=== PATIENT | female | born 1990 | race Two or more races ===

== ENCOUNTER → 2018-08-20 | Outpatient (CLI) | payer SELFPAY ==
--- NOTE | 2018-08-20 17:38 | RADIOLOGY REPORT (SQ) ---
EXAM DESCRIPTION: U/S [id number] TRNABD 1GES W/ODOP COMPLETED DATE/TIME: 08/20/2018 3:52 pm REASON FOR STUDY: Z34.91 ENCNTR FOR SUPRVSN OF NORMAL PREG, UNSP, FIRST TRIMESTER Z34.91 ENCNTR FOR SUPRVSN OF NORMAL PREG, UNSP, FIRST TRIMES COMPARISON: No previous this TECHNIQUE: Static and Dynamic grayscale imaging performed of gravid uterus using transabdominal appr oac. Additional selected color Doppler and spectral images recorded. All stored on PACS. LIMITATIONS: None. FINDINGS: FETUSES SEEN:1 EGA: 15 weeks 4 days Calculated using BPD,FL,HC,AC documented on images. Last menstrual period 2018 estimated gestational age 14 weeks 6 days). ALLEN: 02/07/2019 EFW: Not calculated PERCENTILE: Not calculated TEOFILO: Largest pocket 4.5 cm PLACENTA: Posterior GRADE: I PRESENTATION: Cephalic. ANATOMY: HEART RATE: 162 beats per minute. FOUR CHAMBER HEART: Not well seen THREE VESSEL CORD: Yes. CORD INSERTION: Visualized. KIDNEYS AND BLADDER: Not well seen STOMACH: Visualized. Appears normal. SPINE: Normal as visualized. BRAIN AND LATERAL VENTRICLES: Visualized. Appear normal. OTHER: No other significant finding. MATERNAL ADNEXA: Maternal ovaries not visualized. CERVICAL LENGTH: 4.4 cm Closed. OTHER: No other significant finding. IMPRESSION: LIVING INTRAUTERINE . ESTIMATED GESTATIONAL AGE 15 weeks 4 days NO VISUALIZED ANOMALIES. Trimester of : Second trimester - 13 weeks 1 day to 27 weeks 6 days. TECHNICAL DOCUMENTATION: JOB ID: [id number] [employer]- All Rights Reserved Reading location - IP/workstation name: [email or web address]
== END ==
LOC: RAD 14:50
PROVIDERS: ATTEND Midwife
DX: Z34.82 Encounter for supervision of other normal pregnancy, second trimester (principal)
CPT/HCPCS: 76801

== ENCOUNTER → 2018-10-01 | Outpatient (CLI) | payer MEDICAID ==
--- NOTE | 2018-10-01 14:57 | RADIOLOGY REPORT (SQ) ---
EXAM DESCRIPTION: U/S OB 14+ TRNABD 1GES W/O DOP COMPLETED DATE/TIME: 10/01/2018 2:45 pm REASON FOR STUDY: Z34.82 ENCOUNTER FOR SUPRVSN OF NORMAL , SECOND TRIMESTER Z34.82 ENCOUNT ER FOR SUPRVSN OF NORMAL , SECOND TRI COMPARISON: 08/20/2018 TECHNIQUE: Static and Dynamic grayscale imaging performed of gravid uterus using transabdominal appr oach. Additional selected color Doppler and spectral images recorded. All stored on PACS. LIMITATIONS: None. FINDINGS: FETUSES SEEN:1 EGA: 21 weeks 6 days Calculated using BPD,FL,HC,AC documented on images. No discrepancy with clinica l dates. ALLEN: 02/05/2019 EFW: 505 grams PERCENTILE: 11% TEOFILO: 4.4 cm PLACENTA: Posterior PRESENTATION: Breech ANATOMY: HEART RATE: 132 beats per minute. FOUR CHAMBER HEART: Visualized. THREE VESSEL CORD: Yes. CORD INSERTION: Visualized. KIDNEYS AND BLADDER: Visualized. Appear normal. STOMACH: Visualized. Appears normal. SPINE: Normal as visualized. BRAIN AND LATERAL VENTRICLES: Visualized. Appear normal. OTHER: No other significant finding. MATERNAL ADNEXA: Maternal ovaries not visualized. CERVICAL LENGTH: 5.9 cm. The placenta tip approximately 2.4 cm from the cervical os. Closed. OTHER: A 3.1 x 3.8 x 2.6 cm uterine fibroid is suggested. IMPRESSION: LIVING INTRAUTERINE . ESTIMATED GESTATIONAL AGE: 21 weeks 6 days NO VISUALIZED ANOMALIES. PLEASE SEE ABOVE FINDINGS. Trimester of : Second trimester - 13 weeks 1 day to 27 weeks 6 days. TECHNICAL DOCUMENTATION: JOB ID: [id number] [employer]- All Rights Reserved Reading location - IP/workstation name: [email or web address]
== END ==
LOC: RAD 13:41
PROVIDERS: ATTEND Midwife
DX: Z34.82 Encounter for supervision of other normal pregnancy, second trimester (principal)
CPT/HCPCS: 76805

== ENCOUNTER 2019-02-06 07:42 | Outpatient (CLI) | payer MEDICAID ==
[2019-02-06 08:45] LABS: APPEARANCE,URINE CLOUDY; BILIRUBIN,URINE NEGATIVE (NEGATIVE); COLOR,URINE YELLOW; GLUCOSE, URINE NEGATIVE (NEGATIVE); KETONES,URINE NEGATIVE (NEGATIVE); LEUKOCYTE ESTERASE,URINE MODERATE (NEGATIVE); NITRITE,URINE NEGATIVE (NEGATIVE); PROTEIN,URINE NEGATIVE (NEGATIVE); URINE SPECIFIC GRAVITY 1.017; UROBILINOGEN,URINE NEGATIVE mg/dL (<2.0)
[2019-02-06 09:02] LABS: URINE AMPHETAMINES SCREEN NEGATIVE; URINE BARBITURATES SCREEN NEGATIVE; URINE BENZODIAZEPINES SCREEN NEGATIVE; URINE COCAINE SCREEN NEGATIVE; URINE MARIJUANA (THC) SCREEN NEGATIVE; URINE METHADONE SCREEN NEGATIVE; URINE PHENCYCLIDINE SCREEN NEGATIVE
--- NOTE | 2019-02-06 09:09 | Non Stress Test Report ---
Non Stress Test Datetime Report Generated by CPN: 02/06/2019 09:08 DEMOGRAPHIC Test Number: 1 EGA NST: 39.1 INDICATION Indication for Study (NST) Other: Contractions MONITORING Monitor Explained: Monitor Explained; Test Explained; Patient Verbalized Understanding Time on Monitor: 02/06/2019 08:21 Time off Monitor: 02/06/2019 09:01 NST Duration: 40 NST INTERVENTIONS NST Interventions: PO Hydration Physician Notified NST: Dr. Olman BABY A: [id number] BABY A Movement : Present Contraction Frequency : Irregular FHR Baseline : 150 Accelerations : 15X15 Decelerations : None Variability : Moderate 6-25bpm NST Review: Meets Criteria for Reactive NST NST Review and Verified By : Gerhard Orr RN NST Results: Reactive NST REPORT Report Trigger: Send Report
== END 2019-02-06 10:53 | disposition home or self-care (01) ==
LOC: LC 07:42
PROVIDERS: ATTEND Obstetrics & Gynecology
PROC: 4A1HXCZ Monitoring of Products of Conception, Cardiac Rate, External Approach (ICD-10-PCS; principal; 2019-02-06)
DX: O47.1 False labor at or after 37 completed weeks of gestation (principal); Z3A.39 39 weeks gestation of pregnancy
CPT/HCPCS: 80307; 81005

== ENCOUNTER 2019-02-09 05:02 | Inpatient (IN) | payer MEDICAID ==
[2019-02-09] MEDS ORDERED: OXYTOCIN 10 UNIT/ML VIAL ONE (05:24)
[2019-02-09] MEDS ORDERED: OXYTOCIN/NORMAL SALINE 20 UNIT/1,000 ML RTUINJ ONE (05:24)
[2019-02-09] MEDS ORDERED: LIDOCAINE 1% INJ-PF (10 MG/ML) 30 ML SDV ONE (05:24)
[2019-02-09] MEDS ORDERED: RINGERS SOLUTION,LACTATED 1,000 ML IV PRN (05:24)
[2019-02-09] MEDS ORDERED: MISOPROSTOL 0.2 MG TABLET ONE (05:24)
[2019-02-09 05:36] LABS: APPEARANCE,URINE SLIGHTLY-CLOUDY; BILIRUBIN,URINE NEGATIVE (NEGATIVE); COLOR,URINE YELLOW; GLUCOSE, URINE NEGATIVE (NEGATIVE); KETONES,URINE NEGATIVE (NEGATIVE); LEUKOCYTE ESTERASE,URINE TRACE (NEGATIVE); NITRITE,URINE NEGATIVE (NEGATIVE); PROTEIN,URINE NEGATIVE (NEGATIVE); URINE SPECIFIC GRAVITY 1.023; UROBILINOGEN,URINE NEGATIVE mg/dL (<2.0)
[2019-02-09 05:51] LABS: URINE AMPHETAMINES SCREEN NEGATIVE; URINE BARBITURATES SCREEN NEGATIVE; URINE BENZODIAZEPINES SCREEN NEGATIVE; URINE COCAINE SCREEN NEGATIVE; URINE MARIJUANA (THC) SCREEN NEGATIVE; URINE METHADONE SCREEN NEGATIVE; URINE PHENCYCLIDINE SCREEN NEGATIVE
[2019-02-09] MEDS ORDERED: RINGERS SOLUTION,LACTATED 1,000 ML IV ONE (06:00)
[2019-02-09 06:18] LABS: ABSOLUTE LYMPHOCYTES (AUTO) 1.3 10^3/uL (0.5-4.7); ABSOLUTE MONOCYTES (AUTO) 0.4 10^3/uL (0.1-1.4); BASOPHILS % (AUTO) 0.3 % (0-2); EOSINOPHILS % (AUTO) 0.4 % (0-6); HEMOGLOBIN 10.9 g/dL (12.0-15.5); LYMPHOCYTES % (AUTO) 19.8 % (13-45); MEAN CORPUSCULAR HEMOGLOBIN 28.3 pg (27.0-33.4); MEAN CORPUSCULAR HGB CONC 34.2 g/dL (32.0-36.0); MEAN CORPUSCULAR VOLUME 83 fl (80-97); MONOCYTES % (AUTO) 5.9 % (3-13); PLATELET COUNT 132 10^3/uL (150-450); RED BLOOD COUNT 3.86 10^6/uL (3.72-5.28); RED CELL DISTRIBUTION WIDTH 14.8 % (11.5-14.0); SEGMENTED NEUTROPHILS % (AUTO) 73.6 % (42-78); TOTAL CELLS COUNTED % (AUTO) 100 %; WHITE BLOOD COUNT 6.8 10^3/uL (4.0-10.5)
[2019-02-09] MEDS ORDERED: EPHEDRINE SULFATE INJ 50 MG/1 ML AMPULE ONE (07:21)
[2019-02-09] MEDS ORDERED: FENTANYL CITRATE INJ/PF 100 MCG/2 ML AMPUL ONE (07:21)
[2019-02-09] MEDS ORDERED: FENTANYL/BUPIVACAINE/NS/PF 300 MCG/150 ML RTUINJ EPI ONE (07:21)
[2019-02-09] MEDS ORDERED: PHENYLEPHRINE HCL INJ/PF 10 MG/1 ML SDV ONE (07:21)
[2019-02-09] MEDS ORDERED: BUPIVACAINE HCL 0.25 % INJ/PF (2.5 MG/1 ML) 30 ML VIAL ONE (07:22)
--- NOTE | 2019-02-09 07:49 | Admission Physical ---
Datetime Report Generated by CPN: 02/09/2019 07:48 CURRENT ADMISSION Chief Complaint: Uterine Contractions Indication for Induction: Not Applicable Admit Impression : Term, Intrauterine Admit Plan: Admit to Unit; Initiate Labor Protocol ALLERGIES Medication Allergies: No Medication Allergies: No Known Allergies (02/09/2019) Latex: No Latex Allergies Food Allergies: None Environmental Allergies: None OBSTETRICAL HISTORY EDC: 02/12/2019 00:00 : 3 Para: 2 Term: 2 : 0 SAB: 0 IAB: 0 Ectopic: 0 Livin Cesareans: 0 VBACs: 0 Multiple Births: 0 Gestational Diabetes: No Rh Sensitization: No Incompetent Cervix: No LUIS: No Infertility: No ART Treatment: No Uterine Anomaly: Yes IUGR: No Hx Previous C/S: No Macrosomia: No Hx Loss/Stillborn: No PIH: No Hx : No Placenta Previa/Abruption: No Depression/PP Depression: No PTL/PROM: No Post Hemorrhage: No Current Procedures: Ultrasound Obstetrical History Comments: G1- 2013, IOL for no cervical changes - 2014, G3- Current,Fibroid SEE RECORDS Alcohol: No Marijuana : No Cocaine: No Other Illicit Drugs: No Cigarettes: Never Smoker. 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 Heart Disease: No Hosp/Surgery: Yes Autoimmune Disorder: No Anesthetic Complications: No Kidney Disease: No Abnormal Pap Smear: No Neuro/Epilepsy: No Psychiatric Disorders: No Other Medical Diseases: No Hepatitis/Liver Disease: Yes Significant Family History: No Varicosities/Phlebitis: No Trauma/Violence : No Thyroid Dysfunction: No Medical History Comments: Fatty liver, Childbirth INFECTIOUS HISTORY Gonorrhea: No Genital Herpes: No Chlamydia: No Tuberculosis: No Syphilis: No Hepatitis: No HIV/AIDS Exposure: No Rash or Viral Illness: No HPV: No PHYSICAL EXAM General: Normal HEENT: Normal Neurologic: Normal Thyroid: Normal Heart: Normal Lungs: Normal Breast: Deferred Back: Normal Abdomen: Normal Genitourinary Exam: Normal Extremities: Normal DTRs: Normal Pelvic Type: Adequate FETUS A EGA: 39.4 Monitoring: External US PLANS FOR LABOR AND DELIVERY Labor and Delivery: None Pain Management: Natural Feeding Preference: Breast Benefit of Breast Feed Discussed: Yes Circumcision: Yes INFORMED CONSENT Signature: with User ID: [email or web address]
--- NOTE | 2019-02-09 08:33 | Admission Physical ---
Datetime Report Generated by CPN: 02/09/2019 08:33 CURRENT ADMISSION Chief Complaint: Uterine Contractions Indication for Induction: Not Applicable Admit Impression : Term, Intrauterine ; Active Labor; Intact Membranes Admit Impression- Other: pt just got an epidural, is comfortable Admit Plan: Admit to Unit ALLERGIES Medication Allergies: No Medication Allergies: No Known Allergies (02/09/2019) Latex: No Latex Allergies Food Allergies: None Environmental Allergies: None OBSTETRICAL HISTORY EDC: 02/12/2019 00:00 : 3 Para: 2 Term: 2 : 0 SAB: 0 IAB: 0 Ectopic: 0 Livin Cesareans: 0 VBACs: 0 Multiple Births: 0 Gestational Diabetes: No Rh Sensitization: No Incompetent Cervix: No LUIS: No Infertility: No ART Treatment: No Uterine Anomaly: Yes IUGR: No Hx Previous C/S: No Macrosomia: No Hx Loss/Stillborn: No PIH: No Hx : No Placenta Previa/Abruption: No Depression/PP Depression: No PTL/PROM: No Post Hemorrhage: No Current Procedures: Ultrasound Obstetrical History Comments: G1- 2013, IOL for no cervical changes G2- 2014, G3- Current,Fibroid SEE RECORDS Alcohol: No Marijuana : No Cocaine: No Other Illicit Drugs: No Cigarettes: Never Smoker. 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 Heart Disease: No Hosp/Surgery: Yes Autoimmune Disorder: No Anesthetic Complications: No Kidney Disease: No Abnormal Pap Smear: No Neuro/Epilepsy: No Psychiatric Disorders: No Other Medical Diseases: No Hepatitis/Liver Disease: Yes Significant Family History: No Varicosities/Phlebitis: No Trauma/Violence : No Thyroid Dysfunction: No Medical History Comments: Fatty liver, Childbirth INFECTIOUS HISTORY Gonorrhea: No Genital Herpes: No Chlamydia: No Tuberculosis: No Syphilis: No Hepatitis: No HIV/AIDS Exposure: No Rash or Viral Illness: No HPV: No PHYSICAL EXAM General: Normal HEENT: Normal Neurologic: Normal Thyroid: Normal Heart: Normal Lungs: Normal Breast: Normal Back: Normal Abdomen: Normal Genitourinary Exam: Normal Extremities: Normal DTRs: Normal Pelvic Type: Adequate Vital Signs: Reviewed MEMBRANES Membranes: Intact FETUS A EGA: 39.4 Monitoring: External US FHR- Baseline: 150 Variability: Moderate 6-25bpm Accelerations: 15X15 Decelerations: None FHR Comments: mild variables < 10 sec. Admit Comment: Pt admitted this morning in active labor w/ VE 5/100/-2 per RN. at 39.4 wks, GBS negative, O+. Epidural in place. Pt comfortable. VE deferred. Will AROM within the next hour or so. Vtx on [place], EFW 7+12. Position changes encourged. Attending today is Dr Thurman PLANS FOR LABOR AND DELIVERY Labor and Delivery: None Pain Management: Natural Feeding Preference: Breast Benefit of Breast Feed Discussed: Yes Circumcision: Yes INFORMED CONSENT Assignment: Adele Thurman MD Signature: with User ID: [email or web address] : with User ID: [email or web address]
[2019-02-09] MEDS ORDERED: ACETAMINOPHEN WITH CODEINE #3 TABLET PO PRN (11:07)
[2019-02-09] MEDS ORDERED: OXYTOCIN/NORMAL SALINE 20 UNIT/1,000 ML RTUINJ IV PRN (11:07)
[2019-02-09] MEDS ORDERED: MEASLES,MUMPS&RUBELLA VACC/PF 0.5 ML VIAL SUBCUT PRN (11:07)
[2019-02-09] MEDS ORDERED: BENZOCAINE/MENTHOL AEROSOL SPRAY 56 ML TOP PRN (11:07)
[2019-02-09] MEDS ORDERED: DIPH/PERTUSS(ACELL)/TETANUS VAC/PF 0.5 ML SYR (>=10YO) IM PRN (11:07)
[2019-02-09] MEDS ORDERED: ZOLPIDEM TARTRATE 5 MG TABLET PO PRN (11:07)
[2019-02-09] MEDS ORDERED: DIBUCAINE 1% OINTMENT 28 GM TP PRN (11:07)
[2019-02-09] MEDS: IBUPROFEN 800 MG TABLET PO SCH ×3 (11:15→22:06)
[2019-02-09] MEDS ORDERED: IBUPROFEN 800 MG TABLET ONE (13:30)
--- NOTE | 2019-02-09 15:47 | Delivery Summary ---
Del Sum A-C Datetime Report Generated by CPN: 02/09/2019 15:47 DELIVERY PERSONNEL DELIVERY PERSONNEL: [id number] Delivery Doctor:: Jessenia James CNM Anesthesiologist:: Coleen Hassan MD Labor and Delivery Nurse:: vicky canada Nursery Nurse:: Trish Rodriguez RN Blow Torch Burner/SHIELD CLEANER: Poly Arroyo, ST MATERNAL INFORMATION Delivery Anesthesia: Epidural Medications After Delivery: Pitocin Drip 20 Units/1000ml NSS Delivery QBL: 50 Maternal Complications: None Provider Comments: AROM just prior to . Moderate Meconium noted. With good maternal effort, of VMI, OA, then restitution to KRISTEN, easily delivered the anterior shoulder, body cord noted. Baby Boy placed on pts abdoman, with NBN RN at bedside. Cord clamped after one minute. Cord blood obtained. Placenta S/C/I, ff with decreased lochia, IV Pitocin infusing. Apgars 8,8 QBL 50 ml. Mother and baby skin to skin in stable condition, she plans to breastfeed. Attending MD is Dr Thurman LABOR SUMMARY EDC: 02/12/2019 00:00 No. Babies in Womb: 1 Attempted: No LABOR INFORMATION Reason for Induction: Not Applicable Onset of Labor: 02/09/2019 06:00 Complete Dilatation: 02/09/2019 10:41 Group B Beta Strep: Negative Steroids Given: None Reason Steroids Not Administered: Not Applicable MEMBRANES Membranes Rupture Method: Artificial Rupture of Membranes: 02/09/2019 10:50 Length of Rupture (hr): 0.10 Amniotic Fluid Color: Light Meconium Amniotic Fluid Amount: Small STAGES OF LABOR Stage 1 hr: 4 Stage 1 min: 41 Stage 2 hr: 0 Stage 2 min: 15 Stage 3 hr: 0 Stage 3 min: 3 Total Time in Labor hr: 4 Total Time in Labor min: 59 VAGINAL DELIVERY Episiotomy: None Laceration #1: None Laceration Extension #1: N/A Laceration Repair: Not Applicable BABY A INFORMATION Delivery Date/Time: 02/09/2019 10:56 Method of Delivery: Vaginal Born in Route : No : N/A Forceps: N/A Vacuum Extraction: N/A Shoulder Dystocia : No PRESENTATION/POSITION BABY A Presentation: Cephalic Cephalic Presentation: Vertex Breech Presentation: N/A PLACENTA INFORMATION BABY A Placenta Delivery Time : 02/09/2019 10:59 Placenta Method of Delivery: Spontaneous Placenta Status: Delivered SCORES BABY A Heart Rate 1 min: >100 bpm Resp Effort 1 min: Good Cry Reflex Irritability 1 min: Cough or Sneeze or Pulls Away Muscle Tone 1 min: Active Motion Color 1 min: Blue/Pale Resuscitation Effort 1 min: Tactile Stimulation; PPV/NCPAP SCORE 1 MIN: 8 Heart Rate 5 min: >100 bpm Resp Effort 5 min: Good Cry Reflex Irritability 5 min: Cough or Sneeze or Pulls Away Muscle Tone 5 min: Active Motion Color 5 min: Blue/Pale Resuscitation Effort 5 min: Tactile Stimulation SCORE 5 MIN: 8 INFORMATION BABY A Gestational Age at Delivery: 39.4 Gestational Status: Full Term- 39- 40.6 Weeks Infant Outcome : Liveborn Condition : Stable Sex: Male IDENTIFICATION BABY A Infant Verification Date/Time: 02/09/2019 11:39 ID Band Number: [id number] Mother's Name Verified: Yes RN Verifying : Jose Tovar, RN SGisele Canada, RN WEIGHT/LENGTH BABY A Birthweight (gm): 3790 Weight (lb): 8 Weight (oz): 6 Length (in): 21.00 Length (cm): 53.34 CORD INFORMATION BABY A Nuchal Cord : N/A Infant Suction: Mouth ASSESSMENT BABY A Skin to Skin: No SIGNATURES Assignment: Adele Thurman MD Signature: with User ID: Lele : with User ID: [email or web address]
[2019-02-09] MEDS: DOCUSATE SODIUM 100 MG CAPSULE PO SCH (17:39)
[2019-02-09] MEDS ORDERED: INFLUENZA QUAD (6MOS+) 2019-20 VAC 0.5 ML SYR IM ONE (18:31)
[2019-02-10] MEDS: IBUPROFEN 800 MG TABLET PO SCH ×3 (05:13→21:23)
[2019-02-10 07:03] LABS: HEMATOCRIT 27.7 % (36.0-47.0); HEMOGLOBIN 9.4 g/dL (12.0-15.5); MEAN CORPUSCULAR HEMOGLOBIN 28.2 pg (27.0-33.4); MEAN CORPUSCULAR HGB CONC 33.9 g/dL (32.0-36.0); MEAN CORPUSCULAR VOLUME 83 fl (80-97); PLATELET COUNT 124 10^3/uL (150-450); RED BLOOD COUNT 3.33 10^6/uL (3.72-5.28); RED CELL DISTRIBUTION WIDTH 14.7 % (11.5-14.0); WHITE BLOOD COUNT 6.9 10^3/uL (4.0-10.5)
[2019-02-10] MEDS: FERROUS SULFATE 325 MG TABLET PO SCH (09:15)
[2019-02-10] MEDS: PRENATAL VITAMIN W DHA CAPSULE PO SCH (09:15)
[2019-02-10] MEDS: DOCUSATE SODIUM 100 MG CAPSULE PO SCH ×2 (09:15→17:37)
[2019-02-10] MEDS: SENNOSIDES/DOCUSATE 8.6-50 MG 1 EACH TABLET PO SCH (09:15)
--- NOTE | 2019-02-10 12:39 | PDOC PROGRESS REPORT ---
Subjective-OB Progress Note for:: 02/10/19 Subjective: 28yo G3 now P3 s/p ppd1. Ambulating and voiding without difficulty. Reports pain is well controlled with medication, no concerns today. Physical Exam (OB) Vital Signs: Temp Pulse Resp BP Pulse Ox 97.5 F 72 14 120/56 L 100 02/10/19 07:42 02/10/19 07:42 02/10/19 07:42 02/10/19 07:42 02/10/19 07:42 Intake & Output 02/09/19 02/10/19 02/11/19 06:59 06:59 06:59 Intake Total 300 400 Balance 300 400 Weight 94.4 kg - General General Appearance: Appears well In distress: None - PIH/Pre-Eclampsia Clonus: Negative Headache: Absent Epigastric Pain: No Visual Changes: No - Episiotomy/Laceration Site Condition: N/A - Lochia Lochia Amount: Scant < 10 ml Lochia Color: Rubra/Red - Abdomen Description: Soft Hernia Present: No Fundal Description: Firm, Midline Fundal Height: u/u - u/2 - Respiratory Respiratory Status: No respiratory distress - Extremities Upper extremity: Normal inspection Lower extremities: Normal inspection - Neurological Cognition: Normal Orientation: AAOx4 - Psychological Associated symptoms: Normal affect, Normal mood Objective-Diagnostic Laboratory: 02/10/19 06:40 02/10/19 06:40 WBC 6.9 RBC 3.33 L Hgb 9.4 L Hct 27.7 L MCV 83 MCH 28.2 MCHC 33.9 RDW 14.7 H Plt Count 124 L Assessment and Plan(PN) - Assessment and Plan (1) Anemia complicating , third trimester Is this a current diagnosis for this admission?: Yes Plan: increase dietary iron and FeSO4 BID (2) Delivery normal Is this a current diagnosis for this admission?: Yes Plan: routine pp care (3) Qualifiers: Weeks of gestation: 39 weeks Qualified Code(s): Z3A.39 - 39 weeks gestation of Is this a current diagnosis for this admission?: Yes Plan: delivered - Time Spent with Patient Time with patient: Less than 15 minutes Medications reviewed and adjusted accordingly: Yes - Disposition Anticipated Discharge: Home Within: within 24 hours
[2019-02-11] MEDS: IBUPROFEN 800 MG TABLET PO SCH (05:59)
--- NOTE | 2019-02-11 09:21 | PDOC PROGRESS REPORT ---
Subjective-OB Progress Note for:: 02/11/19 Subjective: Doing well, no c/o, ready to gohome, breast feeding, voiding, Physical Exam (OB) Vital Signs: Temp Pulse Resp BP Pulse Ox 98.5 F 95 18 131/75 H 98 02/11/19 07:22 02/11/19 07:22 02/11/19 07:22 02/11/19 07:22 02/11/19 07:22 Intake & Output 02/10/19 02/11/19 02/12/19 06:59 06:59 06:59 Intake Total 300 700 Balance 300 700 - PIH/Pre-Eclampsia DTR's: 1 + Clonus: Negative Headache: Absent Epigastric Pain: No Visual Changes: No - Lochia Lochia Amount: Scant < 10 ml Lochia Color: Rubra/Red - Abdomen Description: Soft, Round Hernia Present: No Fundal Description: Firm, Midline Fundal Height: u/u - u/2 Objective-Diagnostic Laboratory: 02/10/19 06:40 Assessment and Plan(PN) - Assessment and Plan (1) Anemia complicating , third trimester Is this a current diagnosis for this admission?: Yes (2) Delivery normal Is this a current diagnosis for this admission?: Yes (3) close interval pregnancies Is this a current diagnosis for this admission?: Yes - Time Spent with Patient Time with patient: Less than 15 minutes Medications reviewed and adjusted accordingly: Yes - Disposition Anticipated Discharge: Home Within: within 24 hours
--- NOTE | 2019-02-11 09:25 | PDOC DISCHARGE SUMMARY ---
Impression - Admit/DC Date/PCP Admission Date/Primary Care Provider: 02/09/19 05:29 DIONNE NAVA MD Discharge Date: 02/11/19 - Discharge Diagnosis (1) Anemia complicating , third trimester Is this a current diagnosis for this admission?: Yes (2) Delivery normal Is this a current diagnosis for this admission?: Yes (3) close interval pregnancies Is this a current diagnosis for this admission?: Yes - Additional Information Resuscitation Status: Full Code Discharge Diet: As Tolerated, Regular Discharge Activity: Activity As Tolerated, No Lifting Over 10 Pounds, No Lifting/Push/Pulling, Pelvic Rest Referrals: DIONNE NAVA MD [Primary Care Provider] - (wha 4 weeks) Home Medications: Pnv with Ca,No.72/Iron/FA [ Plus Multivitamin Tab] 1 each PO DAILY 10/06/14 HPI Gestational Age: 39.4 Reason(s) for Admission: Spontaneous Admission Note: light mec, AROM Procedures: NST, Ultrasound Intrapartum Procedure(s): Spontaneous Vaginal Delivery - male, 8-6, 10/02 Hospital Course Hospital Course: routine Results Laboratory Results: WBC 6.9 10^3/uL (4.0-10.5) 02/10/19 06:40 RBC 3.33 10^6/uL (3.72-5.28) L 02/10/19 06:40 Hgb 9.4 g/dL (12.0-15.5) L 02/10/19 06:40 Hct 27.7 % (36.0-47.0) L 02/10/19 06:40 MCV 83 fl (80-97) 02/10/19 06:40 MCH 28.2 pg (27.0-33.4) 02/10/19 06:40 MCHC 33.9 g/dL (32.0-36.0) 02/10/19 06:40 RDW 14.7 % (11.5-14.0) H 02/10/19 06:40 Plt Count 124 10^3/uL (150-450) L 02/10/19 06:40 Lymph % (Auto) 19.8 % (13-45) 02/09/19 05:46 [place]ayer % (Auto) 5.9 % (3-13) 02/09/19 05:46 Eos % (Auto) 0.4 % (0-6) 02/09/19 05:46 Baso % (Auto) 0.3 % (0-2) 02/09/19 05:46 Absolute Neuts (auto) 5.0 10^3/uL (1.7-8.2) 02/09/19 05:46 Absolute Lymphs (auto) 1.3 10^3/uL (0.5-4.7) 02/09/19 05:46 Absolute Monos (auto) 0.4 10^3/uL (0.1-1.4) 02/09/19 05:46 Absolute Eos (auto) 0.0 10^3/uL (0.0-0.6) 02/09/19 05:46 Absolute Basos (auto) 0.0 10^3/uL (0.0-0.2) 02/09/19 05:46 Seg Neutrophils % 73.6 % (42-78) 02/09/19 05:46 Urine Color YELLOW 02/09/19 05:20 Urine Appearance SLIGHTLY-CLOUDY 02/09/19 05:20 Urine pH 6.0 (5.0-9.0) 02/09/19 05:20 Ur Specific [place] 1.023 02/09/19 05:20 Urine Protein NEGATIVE mg/dL (NEGATIVE) 02/09/19 05:20 Urine Glucose (UA) NEGATIVE mg/dL (NEGATIVE) 02/09/19 05:20 Urine Ketones NEGATIVE mg/dL (NEGATIVE) 02/09/19 05:20 Urine Blood NEGATIVE (NEGATIVE) 02/09/19 05:20 Urine Nitrite NEGATIVE (NEGATIVE) 02/09/19 05:20 Urine Bilirubin NEGATIVE (NEGATIVE) 02/09/19 05:20 Urine Urobilinogen NEGATIVE mg/dL (<2.0) 02/09/19 05:20 Ur Leukocyte Esterase TRACE (NEGATIVE) H 02/09/19 05:20 Urine Ascorbic Acid NEGATIVE (NEGATIVE) 02/09/19 05:20 Membranes Rupture NEGATIVE (NEGATIVE) 02/09/19 05:20 Urine Opiates Screen NEGATIVE 02/09/19 05:20 Urine Methadone Screen NEGATIVE 02/09/19 05:20 Ur Barbiturates Screen NEGATIVE 02/09/19 05:20 Ur Phencyclidine Scrn NEGATIVE 02/09/19 05:20 Ur Amphetamines Screen NEGATIVE 02/09/19 05:20 U Benzodiazepines Scrn NEGATIVE 02/09/19 05:20 Urine Cocaine Screen NEGATIVE 02/09/19 05:20 U Marijuana (THC) Screen NEGATIVE 02/09/19 05:20 RPR NONREACTIVE (NONREACTIVE) 02/09/19 05:46 Blood Type O POSITIVE 02/09/19 05:46 Antibody Screen NEGATIVE 02/09/19 05:46 Plan Health Concerns: routine pp Plan of Treatment: d/c home with baby, rev S&S to report Goals: no complications Time Spent: Less than 30 Minutes
[2019-02-11 10:00] VITALS: BP 118/52
[2019-02-11] MEDS: SENNOSIDES/DOCUSATE 8.6-50 MG 1 EACH TABLET PO SCH (10:25)
[2019-02-11] MEDS: FERROUS SULFATE 325 MG TABLET PO SCH (10:25)
[2019-02-11] MEDS: DOCUSATE SODIUM 100 MG CAPSULE PO SCH (10:26)
[2019-02-11] MEDS: PRENATAL VITAMIN W DHA CAPSULE PO SCH (10:26)
== END 2019-02-11 12:21 | disposition home or self-care (01) | DRG 807 ==
LOC: LC 05:02 → LR 05:29 → 2S 06:25 → LR 06:34 → 2S 16:49
PROVIDERS: ADMIT Obstetrics & Gynecology Gynecology; ATTEND Obstetrics & Gynecology Gynecology
PROC: 10E0XZZ Delivery of Products of Conception, External Approach (ICD-10-PCS; principal; 2019-02-09)
PROC: 3E0234Z Introduction of Serum, Toxoid and Vaccine into Muscle, Percutaneous Approach (ICD-10-PCS; 2019-02-11)
DX: O77.0 Labor and delivery complicated by meconium in amniotic fluid (principal); Z37.0 Single live birth; O99.02 Anemia complicating childbirth; D64.9 Anemia, unspecified; Z3A.39 39 weeks gestation of pregnancy; Z23 Encounter for immunization
CPT/HCPCS: 36415; 80307; 81005; 84112; 85025; 85027; 86592; 86850; 86900; 86901; 88307; 90686; J2370; J2590; J3010; J3490